=== PATIENT | female | born 1955 | race Caucasian/White ===

== ENCOUNTER → 2020-07-02 | Outpatient (CLI) | payer BC | END | disposition home or self-care (01) | LOC: LABPAT 11:33 | PROVIDERS: ATTEND Otolaryngology | DX: Z01.818 Encounter for other preprocedural examination (principal); I10 Essential (primary) hypertension | CPT/HCPCS: 93005 ==

== ENCOUNTER → 2020-07-02 | Outpatient (CLI) | payer BC ==
--- NOTE | 2020-07-02 11:46 | CT ---
EXAMINATION TYPE: CT soft tissue neck w con DATE OF EXAM: 07/02/2020 HISTORY: Trouble swallowing COMPARISON: CT cervical spine July 08, 2013 CT DLP: 617 mGycm. Automated Exposure Control for Dose Reduction was Utilized. TECHNIQUE: CT scan of the neck is performed with IV Contrast, patient injected with 100 mL of Isovue 300, axial images are obtained, coronal and sagittal reformatted images are reviewed. FINDINGS: Airway: Somewhat small size thyroid identified near axial image 55. Background moderate emphysematous change redemonstrated in the visualized upper lungs. Patent nasopharyngeal and oropharyngeal airway. Unremarkable epiglottis and vallecula. Just inferior to this level low level of the piriform sinuses there is abnormal anterior heterogeneous tissue just below the hyoid bone above the vocal cords surr ounding the anterior aspect of the hypopharyngeal airway, this is more prominent on the right replaci ng anterior fat measuring 2.5 x 1.4 cm on the right with abnormal curvilinear soft tissue also seen o n the left anteriorly extending to lateral aspect. Further workup with direct visualization is advise d Parotid/submandibular glands: Prominent but subcentimeter lymph nodes suspected inferior right paroti d gland on axial image 31. Carotid/Vascular Structures: Mild plaque at bilateral carotid bulb level. Osseous Structures: No suspicious abnormality Other: Prominent but subcentimeter lymph node just below hyoid bone axial image 41. IMPRESSION: Suspicious heterogeneous soft tissue possible mass anteriorly in the hypopharyngeal airwa y just below the vallecula inferior aspect of the aryepiglottic folds worrisome for mass or neoplasm more prominent on the right versus left occupying the normal deep fat at this level just below the hy oid bone. Further investigation with direct visualization is advised to rule out neoplasm. Inflammato ry processes in differential. No definitive abnormal adenopathy noted. Aspect of the
== END | disposition home or self-care (01) ==
LOC: RADCTMAIN 11:02
PROVIDERS: ATTEND Otolaryngology
DX: J05.10 Acute epiglottitis without obstruction (principal); R13.10 Dysphagia, unspecified
CPT/HCPCS: 70491; Q9967

== ENCOUNTER → 2020-07-26 | Outpatient (CLI) | payer BC ==
--- NOTE | 2020-07-26 10:55 | CT ---
EXAMINATION TYPE: CT chest wo con DATE OF EXAM: 07/26/2020 COMPARISON: none HISTORY: New laryngeal cancer CT DLP: 1084.[address] of the chest was performed with lung and mediastinal window settings submitted. The la ck of contrast limits evaluation of the vascular, mediastinal and parenchymal structures including th e upper abdomen. LUNGS: The lungs are clear and free of infiltrate. No atelectasis. No pulmonary nodule or mass is de tected. No pleural effusion. No CT evidence of interstitial lung disease. MEDIASTINUM/JUDY: Moderate emphysematous changes noted. Thoracic aorta is of normal caliber with lorenzo ited evaluation given lack of contrast. The heart is not enlarged. No evidence for mediastinal mass . No lymph nodes greater than 1cm. UPPER ABDOMEN: No significant abnormality is seen. OTHER: No significant other abnormality. IMPRESSION: 1. No evidence for metastatic disease to the chest.
== END | disposition home or self-care (01) ==
LOC: RADCTMAIN 10:23
PROVIDERS: ATTEND Otolaryngology
DX: C32.9 Malignant neoplasm of larynx, unspecified (principal)
CPT/HCPCS: 71250

== ENCOUNTER → 2020-08-06 | Outpatient (CLI) | payer BC ==
--- NOTE | 2020-08-10 06:16 | PE ---
EXAMINATION TYPE: PET CT fusion skull to thigh DATE OF EXAM: 08/06/2020 COMPARISON: CT neck July 02, 2020. 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 TECHNIQUE: Following the intravenous administration of 10.75 mCi of F-18 FDG, whole body images are performed from the skull base to the midthigh. Images are reviewed on the computer in the coronal, a xial, and sagittal planes. Reconstructed rotating images are created on independent workstation and reviewed on the computer. A localization and attenuation correction CT is performed in conjunction with the PET scan. Dedicated PET/CT imaging of the neck. Blood glucose level equals 111. SCAN: Initial Scan FINDINGS: SKULL BASE AND NECK: Corresponding to recent neck CT there is abnormal soft tissue with hypermetabol ic uptake beginning at inferior aspect of the hyoid bone extending inferiorly nearly to the level of false focal cords with both right and left-sided involvement, soft tissue prominence slightly greater on the right versus left. The max SUV is 16.22 on axial image 46. Craniocaudal length of neoplastic involvement approaching 3.0 cm. Some prominent but subcentimeter bilateral neck lymph nodes are present. No hypermetabolic or enlarge d neck adenopathy noted. There is 7 to 8 mm round hyperdense lesion anterior inferior right parotid gland axial image 34 with abnormal hypermetabolic uptake, max SUV is 3.63. This corresponds to the suspicious lesion noted on n kevin CT. CHEST, MEDIASTINUM, AND HILAR REGION: Moderate underlying emphysematous change redemonstrated. No gonzales spicious nodules or areas of hypermetabolic uptake. ABDOMEN AND PELVIS: Normal excretion is present. Nonspecific gastric uptake appears to correspond to intraluminal contents. No suspicious hypermetabolic uptake. OSSEOUS STRUCTURES: No suspicious hypermetabolic uptake. OTHER CT: Mild calcified plaque right carotid bulb level. Scattered bilateral pelvic phleboliths. Fac et arthropathy lower lumbar spine. Some degenerative change bilateral shoulders. IMPRESSION: Redemonstration of known supraglottic neoplasm. Suspicious subcentimeter lesion right par otid gland, possible secondary malignancy. No suspicious adenopathy or metastatic disease otherwise i dentified.
== END | disposition home or self-care (01) ==
LOC: RADPETMAIN 07:29
PROVIDERS: ATTEND Radiology Radiation Oncology
DX: C32.1 Malignant neoplasm of supraglottis (principal)
CPT/HCPCS: 78815; A9552

== ENCOUNTER 2020-10-01 12:12 | Day surgery (SDC) | payer BC ==
[2020-10-01 12:36] VITALS: RESP 16; TEMP 98.1
[2020-10-01] MEDS ORDERED: ALPRAZolam 0.5 MG TAB PO STA (12:41)
[2020-10-01 13:45] VITALS: BP 168/78; PULSE 71
--- NOTE | 2020-10-01 14:17 | US ---
ULTRASOUND GUIDED CORE BIOPSY RIGHT PAROTID MASS BIOPSY: CLINICAL HISTORY: Subcentimeter right parotid nodule FINDINGS: The procedure was explained to the patient. The risks, complications, benefits and alternatives were discussed and any questions were answered. Informed consent was obtained. Patient was placed supin e on the ultrasound table and prepped and draped in the usual sterile fashion. Utilizing a 20-gauge core biopsy needle 2 passes were made into the requested right parotid nodule. Patient was stable thr oughout the procedure. Pathology is pending. All elements of maximal barrier and sterile technique were utilized. IMPRESSION: 1. Successful ultrasound guided core biopsy right parotid mass.
== END 2020-10-01 13:40 | disposition home or self-care (01) ==
LOC: RADPROMAIN 12:12
PROVIDERS: ATTEND Radiology Radiation Oncology
DX: R22.1 Localized swelling, mass and lump, neck (principal)
CPT/HCPCS: 42400; 76942; 88305

== ENCOUNTER → 2020-12-31 | Outpatient (CLI) | payer BC ==
--- NOTE | 2021-01-03 08:40 | PE ---
EXAMINATION TYPE: PET CT fusion skull to thigh DATE OF EXAM: 12/31/2020 COMPARISON: No prior CTs dislocation Prior PET/CT: 08/06/2020 HISTORY: Head and neck cancer, supraglottis TECHNIQUE: Following the intravenous administration of 10.68 mCi of F-18 FDG, whole body images are performed from the skull base to the midthigh. Images are reviewed on the computer in the coronal, a xial, and sagittal planes. Reconstructed rotating images are created on independent workstation and reviewed on the computer. A localization and attenuation correction CT is performed in conjunction with the PET scan. DLP: 381.76 mGycm SCAN: Subsequent Blood glucose: 101 mg/dL Average Mediastinum SUV: 1.74 Average Liver SUV: 2.23 FINDINGS: NECK: Dedicated head and neck images were obtained. Some subtle asymmetry within the supraglottic re gion remains present. However, the intense uptake present previously has resolved. Focal suspicious u ptake to suggest hypermetabolic activity and neoplasm are not evident on these dedicated neck images. Maximum SUV in the supraglottic region however measures 3.7 with the mean of 2.47. This is similar t o nearby soft tissues. THORAX: No abnormal uptake ABDOMEN: No abnormal uptake PELVIS: No abnormal uptake OSSEOUS STRUCTURES: No abnormal uptake LOCALIZATION CT: No suspicious acute changes within the localization CT COMPARISON: The asymmetry within the supraglottic region appears diminished in size compared to 2020. IMPRESSION: 1. Significant improvement of the radiotracer through the supraglottic region. Focal hyperintensity i s not evident.
== END | disposition home or self-care (01) ==
LOC: RADPETMAIN 11:04
PROVIDERS: ATTEND Internal Medicine Hematology & Oncology
DX: C76.0 Malignant neoplasm of head, face and neck (principal); J04.30 Supraglottitis, unspecified, without obstruction
CPT/HCPCS: 78815; A9552

== ENCOUNTER → 2021-04-22 | Outpatient (CLI) | payer BC ==
--- NOTE | 2021-04-22 13:00 | CT ---
EXAMINATION TYPE: CT soft tissue neck w con DATE OF EXAM: 04/22/2021 12:49 PM COMPARISON: 07/02/2020, 12/31/2020 HISTORY: Malignant neoplasm of supraglottis. CT DLP: 364.4 mGycm Automated exposure control for dose reduction was used. CONTRAST: CT scan of the neck is performed following with IV Contrast, patient injected with 100 mL of Isovue M 300. Axial images are obtained, coronal and sagittal reformatted images are reviewed. FINDINGS: Airway: Somewhat small size thyroid identified near axial image 55. Background moderate emphysematous change redemonstrated in the visualized upper lungs. Patent nasopharyngeal and oropharyngeal airway. Unremarkable epiglottis and vallecula. Subtle asymmetry in the supraglottic region persists from recent PET scan but is stable. Marked inter kory improvement relative to the prior CT scan with regard to the neoplastic process. Mild thickening of the vocal cords bilaterally again noted incidentally. There is emphysematous changes involving the lung apices. Orbits are symmetric. Intracranial structures have a normal appearance. Parotid glands have a normal appearance. Carotid/Vascular Structures: Mild plaque at bilateral carotid bulb level. Osseous Structures: No susp icious abnormality Other: Prominent but subcentimeter lymph node just below hyoid bone stable. IMPRESSION: 1. Significant interval improvement with near complete resolution of the previously described supragl ottic mass and similar in appearance to the recent PET scan of 12/31/2020.
== END | disposition home or self-care (01) ==
LOC: RADCTMAIN 12:02
PROVIDERS: ATTEND Otolaryngology
DX: C32.1 Malignant neoplasm of supraglottis (principal)
CPT/HCPCS: 70491; Q9967

== ENCOUNTER → 2021-07-25 | Outpatient (CLI) | payer BC ==
--- NOTE | 2021-07-25 11:44 | CT ---
EXAMINATION TYPE: CT neck chest w con DATE OF EXAM: 07/25/2021 COMPARISON: 04/22/2021 HISTORY: Malignant neoplasm of head, face, neck CT DLP: 657.30 mGycm CONTRAST: CT scan of the neck is performed with IV Contrast, patient injected with 100 mL of Isovue 300. Contrast enhanced CT of the neck was performed from the skull base through the lung apices. AIRWAY: There is thickening of the epiglottis. Additional wall thickening persists of the subglottic region including the vocal cords which may be posttreatment in nature. No definite recurrent mass is appreciated. SALIVARY GLANDS: The submandibular and parotid glands are free of mass or inflammatory process. THYROID GLAND: Diminutive thyroid lobes. No distinct thyroid nodules seen. LYMPH NODES: No adenopathy seen greater than 1cm. LUNG APICES: No nodule or mass is seen. OTHER: Vascular structures are patent. No significant degenerative change of the cervical spine. N o abscess seen. IMPRESSION: 1. Persistent thickening of the epiglottis and subglottic regions without recurrent mass. EXAMINATION TYPE: CT neck chest w con DATE OF EXAM: 07/25/2021 COMPARISON: HISTORY: Malignant neoplasm of head, face, neck CT DLP: 657.30 mGycm Automated exposure control for dose reduction was used. CONTRAST: CT scan of the chest is performed with IV Contrast, patient injected with 100 mL of Isovue 300. FINDINGS: LUNGS: Emphysematous changes persist. The lungs are grossly clear, there is no concerning parenchymal mass or nodule identified. There is no pleural effusion or pneumothorax seen. The tracheobronchia l tree is patent. MEDIASTINUM: There are no greater than 1 cm hilar or mediastinal lymph nodes. No pericardial effusi on is seen. Thoracic aorta is of normal caliber. The heart is not enlarged. UPPER ABDOMEN: No significant abnormality appreciated. OTHER: No additional significant abnormality is seen. IMPRESSION: No evidence for metastatic disease to the chest.
== END | disposition home or self-care (01) ==
LOC: RADCTMAIN 10:20
PROVIDERS: ATTEND Internal Medicine Hematology & Oncology
DX: C76.0 Malignant neoplasm of head, face and neck (principal)
CPT/HCPCS: 70491; 71260; Q9967

== ENCOUNTER → 2021-09-08 | Outpatient (CLI) | payer BC ==
--- NOTE | 2021-09-13 09:40 | MM ---
Reason for exam: screening (asymptomatic). History: Patient is postmenopausal and has history of other cancer at age 65. Physical Findings: A clinical breast exam by your physician is recommended on an annual basis and results should be correlated with mammographic findings. MG Screening Mammo w CAD Bilateral CC and MLO view(s) were taken. No prior studies available for comparison. Benign oil cyst calcifications on the left. Bilateral circumscribed nodules suggests a benign pattern. A 6mm isodense nodule likely 11-12 o'clock left breast is slightly lobulated. Further evaluation recommended. ASSESSMENT: Incomplete: need additional imaging evaluation, BI-RAD 0 RECOMMENDATION: Special view mammogram of the left breast. (3D) If lesion persists on supplemental views, image directed ultrasound is recommended. [facility] will attempt to contact patient to return for supplemental views and ultrasound if indicated.
== END | disposition home or self-care (01) ==
LOC: RADMAMWWP 16:26
PROVIDERS: ATTEND Internal Medicine Hematology & Oncology
DX: Z12.31 Encounter for screening mammogram for malignant neoplasm of breast (principal); Z78.0 Asymptomatic menopausal state
CPT/HCPCS: 77067

== ENCOUNTER → 2021-09-14 | Outpatient (CLI) | payer BC ==
--- NOTE | 2021-09-14 14:57 | MM ---
Reason for exam: additional evaluation requested from abnormal screening. Last mammogram was performed less than 1 month ago. History: Patient is postmenopausal and has history of other cancer at age 65. Physical Findings: A clinical breast exam by your physician is recommended on an annual basis and results should be correlated with mammographic findings. MG Work Up Mamm w CAD LT Spot compression CC, spot compression MLO, and LM view(s) were taken of the left breast. Prior study comparison: September 08, 2021, bilateral MG screening mammo w CAD. Finding: There is a 6 mm indistinct oval mass located 9 cm from the nipple in the middle position of the left breast persists on additional views. ASSESSMENT: Incomplete: need additional imaging evaluation, BI-RAD 0 RECOMMENDATION: Ultrasound of the left breast.
--- NOTE | 2021-09-14 14:58 | USB ---
Reason for exam: additional evaluation requested from abnormal screening. History: Patient is postmenopausal and has history of other cancer at age 65. US Breast Workup Limited LT Left limited breast ultrasound including focal area of concern, retroareolar and axilla demonstrates no cystic or solid lesion seen. Scanned 11-1 o'clock. ASSESSMENT: Probably benign, BI-RAD 3 RECOMMENDATION: Follow-up diagnostic mammogram of the left breast in 6 months.
== END | disposition home or self-care (01) ==
LOC: RADMAMWWP 13:18
PROVIDERS: ATTEND Internal Medicine Hematology & Oncology
DX: R92.8 Other abnormal and inconclusive findings on diagnostic imaging of breast (principal); Z78.0 Asymptomatic menopausal state
CPT/HCPCS: 77065

== ENCOUNTER → 2022-01-26 | Outpatient (CLI) | payer OTHER ==
--- NOTE | 2022-01-26 09:31 | CT ---
EXAMINATION TYPE: CT chest wo con CT DLP: 661.28 mGycm, Automated exposure control for dose reduction was used. DATE OF EXAM: 01/26/2022 9:21 AM COMPARISON: PET CT 01/03/2021 CLINICAL INDICATION:Female, 66 years old with history of C76.0 Head/Neck Cancer Z03.89 Suspected Mets ; , Head/neck cancer TECHNIQUE: Multiple axial images were obtained through the chest. Sagittal and coronal reformats were created for review. Contrast used: none. Oral contrast used: none. FINDINGS: LUNGS/ PLEURA: Moderate centrilobular and paraseptal emphysema changes. Streaky atelectasis seen with in the lingula. AIRWAY: Patent and unremarkable. HEART: Size within normal limits. Mild coronary artery atherosclerosis. MEDIASTINUM: No gross evidence of adenopathy. Nonenlarged lymph nodes are seen throughout the mediast inum. VASCULATURE: No aortic aneurysm. MUSCULOSKELETAL: No acute osseous abnormalities SOFT TISSUES/LYMPH NODES: Unremarkable. LOWER NECK: No significant findings. UPPER ABDOMEN: No significant findings. Calcified granuloma in the spleen. IMPRESSION: 1. No evidence for metastatic disease within the thorax. 2. Moderate COPD changes with streaky scarring/atelectasis in the right posterior upper lobe.
--- NOTE | 2022-01-26 09:46 | CT ---
EXAMINATION TYPE: CT soft tissue neck w con CT DLP: 689.12 mGycm, Automated exposure control for dose reduction was used. DATE OF EXAM: 01/26/2022 9:21 AM COMPARISON: CT neck 07/25/[address] 08/06/2020 and 12/31/2020. CLINICAL INDICATION:Female, 66 years old with history of C76.0 Head/Neck Cancer Z03.89 Suspected Mets , Head/neck cancer TECHNIQUE: Standard enhanced CT of the neck. Axial sections with coronal and sagittal reformats were obtained. Contrast used:70 mL of Isovue 300 with IV Contrast, Oral contrast used: none. FINDINGS: Brain: Visualized portions are grossly unremarkable. Orbits: Unremarkable Sinuses: Grossly unremarkable. Spaces of the neck: . There is similar morphology to the larynx with asymmetric right soft tissue wit hin the preepiglottic fat most proximal on the right. There remains some mild thickening of the quadr angular membrane bilaterally. Musculoskeletal: No acute osseous pathology. Lymph nodes: Multiple nonenlarged lymph nodes are seen along both anterior chains of the neck. Vascular structures: Visualized major arteries are patent without evidence of aneurysm. Thoracic Inlet/airway: Airway is patent. The lung apices are clear. Soft tissues/Thyroid: Thyroid and remainder of the soft tissues are unremarkable. IMPRESSION Similar morphologic appearance of the larynx with asymmetric right periglottic soft tissue in the fat when compared to 07/25/2021. No definitive evidence for enlarged lymph nodes to suggest metastatic dis ease. Consider direct visualization as clinically warranted.
== END | disposition home or self-care (01) ==
LOC: RADCTMAIN 08:10
PROVIDERS: ATTEND Internal Medicine Hematology & Oncology
DX: C76.0 Malignant neoplasm of head, face and neck (principal); J44.9 Chronic obstructive pulmonary disease, unspecified
CPT/HCPCS: 82565; 84520; 70491; 71250; 36415; Q9967

== ENCOUNTER → 2022-03-20 | Outpatient (CLI) | payer OTHER ==
--- NOTE | 2022-03-20 09:49 | MM ---
Reason for Exam: Follow-up at short interval from prior study. Last screening mammogram was performed 7 month(s) ago. Patient History: Menarche at age 12. First Full-Term at age 22. Postmenopausal. Other cancer, age 65. Risk Values: Prudence 5 year model risk: 1.6%. NCI Lifetime model risk: 6.2%. Prior Study Comparison: 09/08/2021 Bilateral Screening Mammogram, [facility]. 09/14/2021 Left Diagnostic Mammogram, [facility]. Tissue Density: Left: The breast tissue is almost entirely fat. Findings: Analyzed By CAD. Similar 6 mm mass in the left breast middle depth retroareolar region best appreciated on CC view. No new suspicious masses, distortions or clustered locations. Overall Assessment: Benign, BI-RAD 2 Management: Screening Mammogram of both breasts in 6 months. A clinical breast exam by your physician is recommended on an annual basis and results should be correlated with mammographic findings. This exam should not preclude additional follow-up of suspicious palpable abnormalities. Results were given to the patient verbally at the time of exam. Electronically signed and approved by: Preston Field DO
== END | disposition home or self-care (01) ==
LOC: RADMAMWWP 09:14
PROVIDERS: ATTEND Internal Medicine Hematology & Oncology
DX: Z08 Encounter for follow-up examination after completed treatment for malignant neoplasm (principal); Z85.3 Personal history of malignant neoplasm of breast
CPT/HCPCS: 77065

== ENCOUNTER → 2022-09-19 | Outpatient (CLI) | payer OTHER ==
--- NOTE | 2022-09-20 10:10 | MM ---
Reason for Exam: Screening (asymptomatic). Last mammogram was performed 1 year(s) and 1 month(s) ago. Patient History: Menarche at age 12. First Full-Term at age 22. Postmenopausal. Risk Values: Prudence 5 year model risk: 1.6%. NCI Lifetime model risk: 5.9%. Prior Study Comparison: 09/08/2021 Bilateral Screening Mammogram, [facility]. 09/14/2021 Left Diagnostic Mammogram, [facility]. 03/20/2022 Left MG diagnostic mammo LT w CAD, [facility]. Tissue Density: There are scattered fibroglandular densities. Findings: Analyzed By CAD. Pattern appears symmetrical and stable. No significant interval change is evident. No suspicious groups of microcalcifications, spiculated or lobular masses, architectural distortion or other secondary signs of malignancy are mammographically apparent. Overall Assessment: Benign, BI-RAD 2 Management: Screening Mammogram of both breasts in 1 year. A negative mammogram report should not preclude additional follow up of suspicious palpable abnormalities. Patient should continue monthly self breast exam. A clinical breast exam by your physician is recommended on an annual basis and results should be correlated with mammographic findings. Electronically signed and approved by: Randy Littlejohn D.O. Radiologis
== END | disposition home or self-care (01) ==
LOC: RADMAMWWP 15:01
PROVIDERS: ATTEND Internal Medicine Hematology & Oncology
DX: Z12.31 Encounter for screening mammogram for malignant neoplasm of breast (principal); Z78.0 Asymptomatic menopausal state
CPT/HCPCS: 77063; 77067

== ENCOUNTER → 2023-01-29 | Outpatient (CLI) | payer OTHER ==
--- NOTE | 2023-01-29 13:41 | CTL ---
EXAMINATION TYPE: CT Low Dose Lung DATE OF EXAM ORDERED: 01/29/2023 HISTORY: . Lung cancer screening CT DLP: 80.[address] CTDI: 2.4 mGy Automated exposure control for dose reduction was used. COMPARISON: 01/26/2022. TECHNIQUE: Low dose computed tomography scan was performed through the chest at 1 mm thick sections a nd reconstructed images in multiple planes at 1 mm and [address] DIAGNOSTIC QUALITY: Satisfactory FINDINGS: Mediastinum and Seema: There is no axillary, mediastinal or hilar lymphadenopathy. Pleural and Pericardial spaces: There are no pleural or pericardial effusions. Upper Abdomen: The visualized upper abdomen is unremarkable. Cardiovascular: There is mild vascular calcification within the thoracic aorta without evidence of an eurysmal dilation. Mild coronary artery calcium is seen in the left anterior descending. Lung Parenchyma and Airways: There is severe diffuse centrilobular emphysema. Bones: No fracture or aggressive osseous lesion. IMPRESSION: 1. Negative lung cancer screening examination for new or significant pulmonary nodules. 2. Severe emphysema. 3. Coronary artery calcification. Lung RADS - 1, continue with annual screening follow-up.
== END | disposition home or self-care (01) ==
LOC: RADCTMAIN 12:57
PROVIDERS: ATTEND Otolaryngology
DX: Z12.2 Encounter for screening for malignant neoplasm of respiratory organs (principal); J43.2 Centrilobular emphysema; I25.10 Atherosclerotic heart disease of native coronary artery without angina pectoris; Z72.0 Tobacco use
CPT/HCPCS: 71271

== ENCOUNTER → 2023-10-09 | Outpatient (CLI) | payer OTHER ==
--- NOTE | 2023-10-11 12:52 | MM ---
Reason for Exam: Screening (asymptomatic). Last screening mammogram was performed 12 month(s) ago. Patient History: Menarche at age 12. First Full-Term at age 22. Postmenopausal. Risk Values: Prudence 5 year model risk: 1.7%. NCI Lifetime model risk: 5.7%. Prior Study Comparison: 09/14/2021 Left Diagnostic Mammogram, [facility]. 03/20/2022 Left MG diagnostic mammo LT w CAD, [facility]. 09/19/2022 Bilateral MG 3D screening mammo w/cad, [facility]. Tissue Density: There are scattered areas of fibroglandular density. Findings: Analyzed By CAD. There is no suspicious group of microcalcifications or new suspicious mass in either breast. Overall Assessment: Benign, BI-RAD 2 Management: Screening Mammogram of both breasts in 1 year. . Patient should continue monthly self-breast exams. A clinical breast exam by your physician is recommended on an annual basis. This exam should not preclude additional follow-up of suspicious palpable abnormalities. Note on Prudence scores and lifetime risk: 1. A Prudence score greater than 3% is considered moderate risk. If this is the case, consider specialist referral to assess eligibility for a risk reducing agent. 2. If overall lifetime risk for the development of breast cancer is 20% or higher, the patient may qualify for future screening with alternating mammogram and breast MRI. Electronically signed and approved by: Shimon Escamilla M.D. Radiologis
== END | disposition home or self-care (01) ==
LOC: RADMAMWWP 10:41
PROVIDERS: ATTEND Internal Medicine Hematology & Oncology
DX: Z12.31 Encounter for screening mammogram for malignant neoplasm of breast (principal); C76.0 Malignant neoplasm of head, face and neck; E03.9 Hypothyroidism, unspecified; E78.5 Hyperlipidemia, unspecified; I10 Essential (primary) hypertension; Z78.0 Asymptomatic menopausal state
CPT/HCPCS: 77063; 77067

== ENCOUNTER → 2024-02-01 | Outpatient (CLI) | payer BC, OTHER ==
--- NOTE | 2024-02-22 14:06 | CTL ---
Site ID [facility] Patient Mikaela Gibson G ID [id number] Age/Gender: 68Y, F Order # N/A Procedure CT LOW DOSE LUNG CANCER SCREENING Date 02/01/2024 11:17:00 AM EXAMINATION TYPE: CT Low Dose Lung DATE OF EXAM ORDERED: 02/08/2024 HISTORY: Personal history of nicotine dependence, 51 pack-year history, former smoker. Lung cancer sc reening CT DLP: 85.[address] CTDI: 2.40 mGy Automated exposure control for dose reduction was used. SCREENING VISIT: Follow-up COMPARISON: CT Low Dose Lung cancer screening 01/29/2023, CT chest 1122, CT neck chest 07/25/2021, PET C T 12/31/2020 TECHNIQUE: Low dose computed tomography scan was performed through the chest at 1 mm thick sections a nd reconstructed images in multiple planes at 1 mm and [address] DIAGNOSTIC QUALITY: Satisfactory FINDINGS: Nodules: No clinically significant pulmonary nodules. LUNGS: COPD: Severity: Moderate to severe centrilobular emphysematous change Fibrosis: Severity: None Lymph nodes: None Other findings: None RIGHT PLEURAL SPACE: Effusion: None Calcification: None Thickening: None Pneumothorax: None LEFT PLEURAL SPACE: Effusion: None Calcification: None Thickening: None Pneumothorax: None HEART: Heart Size: Normal Coronary Calcification: Small Pericardial Effusion: None OTHER FINDINGS: Upper abdomen: None Bony thorax: No acute process. Multilevel degenerative disc disease of the lower thoracic spine. Supraclavicular region: None Other: Mild atherosclerotic calcification of the aorta and its branches. IMPRESSION: 1. No clinically significant pulmonary nodules. 2. Moderate to severe COPD changes. CT LUNG RAD AND CT CHEST RECOMMENDATION: Lung-Rad 1 Negative: Continue annual screening with LDCT in 12 months. S Modifier (other clinically significant findings): None
== END | disposition home or self-care (01) ==
LOC: RADCTMAIN 11:00
PROVIDERS: ATTEND Internal Medicine Hematology & Oncology
DX: Z12.2 Encounter for screening for malignant neoplasm of respiratory organs (principal); F17.210 Nicotine dependence, cigarettes, uncomplicated; J44.9 Chronic obstructive pulmonary disease, unspecified
CPT/HCPCS: 71271